=== PATIENT | female | born 1960 | race Caucasian/White ===

== ENCOUNTER 2021-06-27 10:00 | Inpatient (IN) | payer OTHER, SELFPAY ==
[2021-06-27] VITALS (10 sets, daily range): BP systolic 103–117; BP diastolic 63–74; PULSE 67–85; RESP 16–24; TEMP 36.6–37; O2SAT 84–97
--- NOTE | 2021-06-27 10:21 | W.ED.SOB ---
HPI - SOB/Dyspnea General: Chief Complaint: Shortness of Breath/Dyspnea Stated Complaint: Covid+, Low O2 Time Seen by Provider: 06/27/21 10:20 History of Present Illness: HPI Narrative: Ms. Don is a 61-year-old lady without significant past medical history presents to the emergency department due to worsening shortness of breath. Symptom onset was 6 days ago and she has had fairly typical Covid symptoms including fevers, chills, cough, body aches, and diarrhea. She tested positive 5 days ago however did not qualify for antibody infusion. At that time she was also given a course of steroids, Z-Tyrese, and inhalers by a clinic. Despite these treatments her symptoms are worsening. They're moderate in intensity and worse with exertion. No other specific changes to health, exacerbating, or relieving factors. No smoking history. No history of lung disease. Review of Systems General: Reports: 10 or more systems reviewed and unremarkable except in HPI and below PFSH ED PFSH: Medical History (Updated 06/27/21 @ 14:24 by Jose Alberto Perez MD) No significant past medical history Surgical History (Updated 06/27/21 @ 14:23 by Jose Alberto Perez MD) History of hysteroscopy Social History (Updated 06/27/21 @ 14:23 by Jose Alberto Perez MD) Smoking and tobacco status: former smoker Alcohol intake: never Substance/Drug Use: never Lives independently: Yes Household members: spouse Housing: House Physical Exam Narrative: EXAM NARRATIVE: GENERAL/CONSTITUTIONAL -ill-appearing. Increased respiratory effort Eyes - PERRL, no conjunctival injection ENMT - Atraumatic external nose and ears. Moist mucous membranes NECK - supple. trachea midline CARDIOVASCULAR - regular rate and rhythm. RESPIRATORY -diminished and coarse to auscultation bilaterally. Hypoxemia on room air. Tachypnea and increased respiratory effort. ABDOMEN/GI - Nontender/Nondistended. MSK - Extremities without obvious deformity or tenderness to palpation SKIN - Warm, Dry NEURO - alert and appropriately oriented. Moves all extremities equally. Course ED course: - Patient was seen and evaluated by me at bedside - Patient placed on cardiac monitors, IV access obtained - Initial evaluation notable for ill appearance, increased respiratory effort with hypoxemia on room air -Symptom treatment ordered - Labs notable for no significant hematologic abnormalities. Metabolic panel with mild respiratory alkalosis with decreased partial pressure of oxygen. No significant electrolyte abnormalities. CRP elevated with normal procalcitonin. - Imaging notable for bilateral infiltrates - Based on patient history, evaluation, labs, and imaging as interpreted the most likely cause of the patient's condition is COVID-19 with hypoxemia and respiratory distress requiring supplemental oxygen - The results of ED evaluation were discussed with the patient including plan for admission due to requirement for level of care not available if discharged to prevent significant worsening/deterioration. - Hospitalist service contacted and agreed admit the patient. D-dimer ordered at hospitalist request. - Patient was admitted without further deterioration or significant events. Vital Signs: Vital signs: Vital Signs Temperature 97.4 F L 07/02/21 20:00 Pulse Rate 80 07/02/21 20:20 Respiratory Rate 18 07/02/21 20:20 Blood Pressure 96/62 07/02/21 20:00 Pulse Oximetry 93 07/02/21 20:11 MDM - SOB/Dyspnea Medical Records: Attestation: I reviewed the patient's medical records. Lab Data: Attestation: I reviewed the patient's lab results. Labs: Lab Results 06/27/21 06/27/21 06/27/21 10:50 10:50 10:50 WBC 7.1 10^3/uL 10^3/ uL (4.0-10.0) RBC 4.74 10^6/uL 10^6 /uL (4.1-5.3) Hgb 14.3 g/dL g/dL (11.5-15.3) Hct 42.5 % % (37.0-47.0) MCV 89.7 fl fl (81-99) MCH 30.2 pg pg (28.0-34.0) MCHC 33.6 g/dL g/dL (30.0-36.0) RDW 12.2 % % (12.1-15.1) Plt Count 230 10^3/cmm 10^3 /cmm (130-400) MPV 9.8 fL fL (7.4-10.4) Neut % (Auto) 73.2 % % Lymph % (Auto) 14.6 % % Henderson % (Auto) 10.5 % % Eos % (Auto) 0.0 % % Baso % (Auto) 0.1 % % Neut # (Auto) 5.18 10^3/uL 10^3 /uL (1.8-7.7) Lymph # (Auto) 1.0 10^3/uL 10^3/ uL (0.8-4.8) Henderson # (Auto) 0.7 10^3/uL 10^3/ uL (0.2-0.9) Eos # (Auto) 0.0 10^3/uL 10^3/ uL (0.0-0.8) Baso # (Auto) 0.0 10^3/uL 10^3/ uL (0.0-0.1) Nucleated RBC % (a uto) 0 % % Nucleated RBCs # 0.0 /100WBC /100W BC D-Dimer Specimen Type Sample Site ABG pH ABG pCO2 ABG pO2 ABG HCO3 ABG Base Excess Weston Test Hematocrit Hgb O2 Saturation Carboxyhemoglobin Methemoglobin Total Hemoglobin O2 Delivery Device O2 Liters/Min FiO2 Supervisor Maintenance And Custodians ID Sodium 139 mmol/L mmol/L (136-145) Potassium 4.3 mmol/L mmol/L (3.5-5.1) Chloride 99 mmol/L mmol/L (98-107) Carbon Dioxide 28 mmol/L mmol/L (22-29) Anion Gap 16.3 (5-19) BUN 16 mg/dL mg/dL (8-23) Creatinine 0.6 mg/dL mg/dL (0.5-0.9) GFR Calculation 101.0 mL/min mL/m in (90-130) Glucose 103 mg/dL mg/dL (65-115) Calculated Osmolal ity 289 mOsm/kg mOsm/ kg (285-295) Lactic Acid 1.6 mmol/L mmol/L (0.5-2.2) Calcium 8.9 mg/dL mg/dL (8.5-10.5) Total Bilirubin 0.2 mg/dL mg/dL (0.15-1.2) AST 64 U/L H U/L (0-32) ALT 56 U/L H U/L (0-33) Alkaline Phosphata se 58 IU/L IU/L (35-105) Troponin T Baselin e Troponin T 120 Min marcell Delta Troponin T C-Reactive Protein 22.9 mg/L H mg/L (0.0-4.9) Total Protein 6.5 g/dL L g/dL (6.6-8.7) Albumin 3.7 g/dL g/dL (3.5-5.2) Globulin 2.8 g/dL g/dL (1.3-4.6) Procalcitonin 0.07 ng/mL ng/mL (0-0.5) 06/27/21 06/27/21 06/27/21 10:50 10:50 10:52 WBC RBC Hgb Hct MCV MCH MCHC RDW Plt Count MPV Neut % (Auto) Lymph % (Auto) Henderson % (Auto) Eos % (Auto) Baso % (Auto) Neut # (Auto) Lymph # (Auto) Henderson # (Auto) Eos # (Auto) Baso # (Auto) Nucleated RBC % (a uto) Nucleated RBCs # D-Dimer 1.06 ug/mIFEU H u g/mIFEU (0-0.59) Specimen Type Arterial Sample Site Brachial, right ABG pH 7.46 H (7.35-7.45) ABG pCO2 39.5 mmHg mmHg (35-45) ABG pO2 69.1 mmHg L mmHg (80.0-100.0) ABG HCO3 28.1 mmol/L H mmo l/L (22-26) ABG Base Excess 4.0 mmol/L H mmol /L (-2.0-2.0) Weston Test N/a Hematocrit 39.9 % % (37-47) Hgb O2 Saturation 93.6 % L % (95-100) Carboxyhemoglobin 0.6 %THgb %THgb (0.4-20.1) Methemoglobin 0.9 % % (0.4-1.5) Total Hemoglobin 13.0 g/dL g/dL (12-16) O2 Delivery Device Nc O2 Liters/Min 4.0 % % FiO2 36.0 % % Supervisor Maintenance And Custodians ID Amh Sodium Potassium Chloride Carbon Dioxide Anion Gap BUN Creatinine GFR Calculation Glucose Calculated Osmolal ity Lactic Acid Calcium Total Bilirubin AST ALT Alkaline Phosphata se Troponin T Baselin e 12 ng/L H ng/L (0-10) Troponin T 120 Min marcell Delta Troponin T C-Reactive Protein Total Protein Albumin Globulin Procalcitonin 06/27/21 12:43 WBC RBC Hgb Hct MCV MCH MCHC RDW Plt Count MPV Neut % (Auto) Lymph % (Auto) Henderson % (Auto) Eos % (Auto) Baso % (Auto) Neut # (Auto) Lymph # (Auto) Henderson # (Auto) Eos # (Auto) Baso # (Auto) Nucleated RBC % (a uto) Nucleated RBCs # D-Dimer Specimen Type Sample Site ABG pH ABG pCO2 ABG pO2 ABG HCO3 ABG Base Excess Weston Test Hematocrit Hgb O2 Saturation Carboxyhemoglobin Methemoglobin Total Hemoglobin O2 Delivery Device O2 Liters/Min FiO2 Supervisor Maintenance And Custodians ID Sodium Potassium Chloride Carbon Dioxide Anion Gap BUN Creatinine GFR Calculation Glucose Calculated Osmolal ity Lactic Acid Calcium Total Bilirubin AST ALT Alkaline Phosphata se Troponin T Baselin e Troponin T 120 Min marcell 11.18 ng/L H ng/L (0-10) Delta Troponin T -0.82 ABS# L ABS# (0-10) C-Reactive Protein Total Protein Albumin Globulin Procalcitonin EKG Data^: EKG 1: Attestation: I personally reviewed and interpreted this EKG as follows: EKG Interpretation Date: 06/27/21 EKG interpretation time: 10:48 Interpretation: Twelve-lead EKG shows a regular rhythm at a rate of 82. MD interval 135, QRS duration 83, QTc 376. Normal axis. Interpretation: Sinus rhythm. EKG 2: Attestation: I personally reviewed and interpreted this EKG as follows: EKG Interpretation Date: 06/27/21 EKG interpretation time: 12:59 Interpretation: Twelve-lead EKG shows a regular rhythm at a rate of 71. MD interval 131, QRS duration 85, QTc 376. Normal axis. Interpretation: Sinus rhythm. Discharge Plan Discharge Patient Disposition: Admitted As Inpatient Admit Provider: Jose Alberto Perez Coding Level of Care Code ED [employer] for [facility]
--- NOTE | 2021-06-27 10:31 | XRR_ITS ---
PROCEDURE INFORMATION: Exam: XR Chest Exam date and time: 06/27/2021 10:31 AM Age: 61 years old Clinical indication: Shortness of breath; Additional info: SOB TECHNIQUE: Imaging protocol: XR of the chest. Views: 1 view. COMPARISON: No relevant prior studies available. FINDINGS: Lungs: Bilateral consolidation and ground-glass opacities predominantly in the lower lungs. Pleural spaces: Unremarkable. No pleural effusion. No pneumothorax. Heart/Mediastinum: Unremarkable. No cardiomegaly. Bones/joints: No acute findings. XR/XR chest 1V portable [id number] IMPRESSION: Bilateral pneumonia. Radiation Dose CTDIVOL = (mGy): DLP = (mGy-cm)
--- NOTE | 2021-06-27 10:32 | ECG_ITS ---
[facility] Test Date: 2021-06-27 Pat Name: Grace Don Department: Room: Gender: Female Digital Project Manager: : 1960 Requested By: Anthony Becker Order Number: [id number] Sukhjinder MD: Sly Vigil M.D. Measurements Intervals [place] Rate: 82 P: 64 [place]: 135 QRS: 42 QRSD: 83 T: 64 QT: 337 QTc: 395 Interpretive Statements SINUS RHYTHM LOW QRS VOLTAGE IN PRECORDIAL LEADS [QRS DEFLECTION < 1.0 mV IN CHEST LEADS] MODERATE ST DEPRESSION [0.05+ mV ST DEPRESSION] No previous ECG available for comparison Electronically Signed On 06-27-2021 22:05:21 WIDE AREA NETWORK ENGINEER by Sly Vigil M.D. [id number] f
[2021-06-27] MEDS: sodium chloride 0.9% 500 ML 999 ML IV (10:53)
[2021-06-27 11:04] LABS: ABG PCO2 39.5 mmHg (35-45); ABG PH Result 7.46 (7.35-7.45); Arterial Blood Gas Hematocrit 39.9 % (37-47); Blood Gas Operator Identificat AMH; Blood Gas Sample Site Brachial, right; Blood Gas Sample Type Arterial; Carboxyhemoglobin 0.6 %THgb (0.4-20.1); HCO3 ABG 28.1 mmol/L (22-26); HGB O2 Sat 93.6 % (95-100); Methemoglobin 0.9 % (0.4-1.5); Oxygen Device NC; PO2 ABG 69.1 mmHg (80.0-100.0)
[2021-06-27 11:15] LABS: Basophils % 0.1 %; Hematocrit 42.5 % (37.0-47.0); Hemoglobin 14.3 g/dL (11.5-15.3); Lymphocytes % 14.6 %; Mean Corpuscular HGB Conc 33.6 g/dL (30.0-36.0); Mean Corpuscular Hemoglobin 30.2 pg (28.0-34.0); Mean Corpuscular Volume 89.7 fl (81-99); Mean Platelet Volume 9.8 fL (7.4-10.4); Monocytes # 0.7 10^3/uL (0.2-0.9); Monocytes % 10.5 %; Neutrophils # 5.18 10^3/uL (1.8-7.7); Neutrophils % 73.2 %; Nucleated Red Blood Cells % 0 %; Platelet Count 230 10^3/cmm (130-400); Red Blood Count 4.74 10^6/uL (4.1-5.3); Red Cell Distribution Width 12.2 % (12.1-15.1); White Blood Count 7.1 10^3/uL (4.0-10.0)
[2021-06-27 11:29] LABS: Slide Review Slide Review Perform
[2021-06-27 11:58] LABS: Troponin(5th) Baseline 12 ng/L (0-10)
[2021-06-27 12:01] LABS: Alanine Aminotransferase 56 U/L (0-33); Albumin Level 3.7 g/dL (3.5-5.2); Alkaline Phosphatase 58 IU/L (35-105); Anion Gap 16.3 (5-19); Aspartate Amino Transferase 64 U/L (0-32); Blood Urea Nitrogen 16 mg/dL (8-23); C Reactive Protein 22.9 mg/L (0.0-4.9); Calcium 8.9 mg/dL (8.5-10.5); Carbon Dioxide 28 mmol/L (22-29); Chloride 99 mmol/L (98-107); Globulin 2.8 g/dL (1.3-4.6); Glucose 103 mg/dL (65-115); Lactic Sepsis W/Reflex 1.6 mmol/L (0.5-2.2); Osmolality Calculated 289 mOsm/kg (285-295); Potassium 4.3 mmol/L (3.5-5.1); Sodium 139 mmol/L (136-145); Total Bilirubin 0.2 mg/dL (0.15-1.2); Total Protein 6.5 g/dL (6.6-8.7)
[2021-06-27 12:07] LABS: Procalcitonin 0.07 ng/mL (0-0.5)
--- NOTE | 2021-06-27 12:32 | ECG_ITS ---
[facility] Test Date: 2021-06-27 Pat Name: Grace Don Department: Room: 255 Gender: Female Hydrodynamics Professor: : 1960 Requested By: Anthony Becker Order Number: [id number] Sukhjinder MD: Sly Vigil M.D. Measurements Intervals [place] Rate: 71 P: 59 [place]: 131 QRS: 38 QRSD: 85 T: 60 QT: 354 QTc: 385 Interpretive Statements SINUS RHYTHM LOW QRS VOLTAGE IN PRECORDIAL LEADS [QRS DEFLECTION < 1.0 mV IN CHEST LEADS] Compared to ECG 06/27/2021 10:41:59 ST (T wave) deviation no longer present Electronically Signed On 06-27-2021 22:17:51 AIR CREW MEMBER by Sly Vigil M.D. [id number]
[2021-06-27 13:23] LABS: Troponin 5 2HR 11.18 ng/L (0-10)
--- NOTE | 2021-06-27 13:41 | PM.HP ---
Providers/Chief Complaint Admitting Physician: Jose Alberto Perez MD Chief Complaint: Covid+, Low O2 History of Present Illness Grace Don is a 61 year old female with no significant past medical history other than a recent hysteroscopy and polypectomy presents to the ER today after being tested positive for Covid 5 days ago. Patient states she started having symptoms of myalgia, cough, fever for last 6 days. For last 2 days she has been having increased cough on taking deep inspirations. Patient is not vaccinated for COVID-19. She states her is having similar symptoms but he has been vaccinated with last dose in January and is at home with mild cough. Review of Systems General: Reports: 10 or more systems reviewed and unremarkable except in HPI and below Const: Denies: fever(s), chills, body aches, change in appetite, change in weight, malaise, night sweats, diaphoresis, change in sleep pattern, daytime sleepiness or snoring Eyes: Denies: change in vision, blurry vision, photophobia, eye discomfort or eye discharge ENMT: Denies: throat pain, enlarged tonsils, hoarseness, mouth pain, oral sores, dry mouth, tinnitus, nasal congestion or post nasal drip Card: Denies: chest pain, palpitations, irregular heart rhythm, edema, swelling of feet/ankles, lightheadedness, syncope, pre-syncope, dyspnea on exertion, orthopnea, leg pain with exertion or acrocyanosis Resp: Denies: dyspnea, productive cough, non-productive cough, wheezing, stridor, pain on inspiration, change in phlegm color, hemoptysis or chest congestion GI: Denies: abdominal pain, nausea, vomiting, hematemesis, coffee ground emesis, dysphagia, heartburn, diarrhea, constipation, bloating, GI cramping, change in bowel habits, pain on defecation, hematochezia or melena : Denies: flank pain, dysuria, urinary frequency, urinary urgency, urinary hesitancy, nocturia or hematuria Musc: Denies: neck pain, back pain, extremity pain, joint pain, joint swelling, joint redness, joint stiffness or limited range of motion Neuro: Denies: headache(s), numbness in extremities, weakness in extremities, sensory changes, lack of coordination, difficulty walking, frequent falls, dizziness, vertigo, confusion, Slurred speech present, difficulty communicating thoughts or seizure-like activity Psych: Denies: anxiety, depression, mood swings, panic attacks, hopelessness or irritability Endo: Denies: polyuria, polydipsia, tired all the time, cold intolerance, excessive sweating, flushing or heat intolerance Jesus/Lymph: Denies: easy bruising or easy bleeding All/Imm: Denies: tongue swelling, facial swelling or acute wheezing Medications/Allergies Home Medications Medication Instructions Recorded Confirmed Last Taken Type albuterol sulfate 2 puff INHALATION Q6H PRN 06/27/21 06/27/21 Unknown History azithromycin See Rx Instructions .ROUTE .COMPLEX 06/27/21 06/27/21 06/26/21 History methylprednisolone See Rx Instructions .ROUTE .COMPLEX 06/27/21 06/27/21 06/26/21 History Allergies Allergy/AdvReac Type Severity Reaction Status Date / Time No Known Allergies Allergy Verified 06/27/21 10:12 PFSH Acute PFSH: Medical History (Updated 06/27/21 @ 14:24 by Jose Alberto Perez MD) No significant past medical history Surgical History (Updated 06/27/21 @ 14:23 by Jose Alberto Perez MD) History of hysteroscopy Social History (Updated 06/27/21 @ 14:23 by Jose Alberto Perez MD) Smoking and tobacco status: former smoker Alcohol intake: never Substance/Drug Use: never Lives independently: Yes Household members: spouse Housing: House Vitals/I&O/Wt Last Vital Signs Temp 98 F 06/27/21 10:12 Pulse 79 06/27/21 10:57 Resp 20 H 06/27/21 10:57 BP 117/74 06/27/21 10:57 Pulse Ox 97 06/27/21 10:57 06/26/21 06/27/21 06/27/21 22:59 06:59 14:59 Intake Total 500 / 500 Balance 500 / 500 Weight last 48 hrs Weight 54.431 kg Physical Exam Narrative: EXAM NARRATIVE: General: No acute distress, AO x3, mildly dehydrated HEENT: PERRLA, pupils bilaterally equal and reactive Chest: Normal vesicular breath sounds, bilateral rhonchi present, equal good air entry bilaterally CVS: S1-S2 regular, no murmurs, no tachycardia, no gallops, no rubs Abdomen: Soft, nontender, no organomegaly, bowel sounds present Neuro: No focal deficits, no facial deformity, AO x3, power 5/5 in all limbs Data : 06/27/21 10:50 06/27/21 10:50 A&P Assessment and plan (1) Pneumonia due to COVID-19 virus: Status: Acute (2) Hypoxia: Status: Acute Additional A&P Information Hypoxia secondary to COVID-19 pneumonia: Mild to moderate disease. Oxygen supplementation keeping saturation over 88%. Dexamethasone 6 mg daily. Remdesivir to finish a 5-day course. Vitamin C, zinc. DuoNeb every 6 hour, budesonide twice daily Pulmonary toilet with incentive spirometry flutter valve. We will monitor inflammatory markers including ferritin, ESR, CRP, D-dimer, fibrinogen. If getting elevated will dose Actemra. Patient was made aware of the same and he has given verbal consent. Check D-dimer. Depending on D-dimer will see CTA versus CT chest. For now start patient on Lovenox at prophylactic dose. Will monitor for anemia or blood loss. Check sputum culture, procalcitonin, urine Legionella, bacterial antigen, blood culture. Low suspicion of bacterial infection for now. For now Levaquin 500 mg daily for 5 days. Given hypoxia will try to keep patient as negative as possible. We will continue to monitor fluid status. Strict input output charting, daily weights. Full code. Lovenox for DVT prophylaxis. Pepcid for PUD prophylaxis. Regular diet. Patient wants her daughter Ms. Damon to be her DPOA for medical decisions when she is not able to make it by herself. Attestations Medical Necessity Statement*: Admission for more than 2 midnights for management of hypoxia secondary to COVID-19 pneumonia Time Spent in Patient Care: Greater than 35 minutes (>than 50% of time spent in counselling and/or direct pt care on unit). Coding Level of Care Code Acute Teleprinter Installer for Chris Moreland Diagnoses Pneumonia due to COVID-19 virus U07.1; J12.82 Hypoxia R09.02
[2021-06-27 13:47] LABS: Troponin 5 2HR Delta -0.82 ABS# (0-10)
[2021-06-27 13:56] LABS: D Dimer 1.06 ug/mIFEU (0-0.59)
--- NOTE | 2021-06-27 14:10 | CTR_ITS ---
PROCEDURE INFORMATION: Exam: CTA Chest With Contrast Exam date and time: 06/27/2021 2:10 PM Age: 61 years old Clinical indication: Shortness of breath; Additional info: Elevated d dimer TECHNIQUE: Imaging protocol: Computed tomographic angiography of the chest with contrast. 3D rendering (Not supervised by radiologist): MIP and/or 3D reconstructed images were created by the technologist. Radiation optimization: All CT scans at this facility use at least one of these dose optimization techniques: automated exposure control; mA and/or kV adjustment per patient size (includes targeted exams where dose is matched to clinical indication); or iterative reconstruction. Contrast material: OMNI 350; Contrast volume: 69 ml; Contrast route: INTRAVENOUS (IV); COMPARISON: CR XR chest 1V portable [id number] 06/27/2021 11:01 AM RADIATION DOSE METRICS: Total DLP (mGy-cm): 329.94 FINDINGS: Pulmonary arteries: No pulmonary emboli. Aorta: No aortic aneurysm. No aortic dissection. Lungs: Bilateral multifocal ground-glass opacities and partial consolidation predominantly in the periphery of both lungs. No cavitary lesion or mass. Pleural spaces: Unremarkable. No pneumothorax. No pleural effusion. Heart: No cardiomegaly. Trace pericardial effusion. Lymph nodes: No significant adenopathy. Bones/joints: No acute findings. Soft tissues: Unremarkable. CT/CT angio chest PE protcl [id number] IMPRESSION: Bilateral pneumonia consistent with COVID-19 pneumonia. Radiation Dose CTDIVOL = (mGy): DLP = 329.94 (mGy-cm)
--- NOTE | 2021-06-27 14:43 | PC.NURSE ---
Report called to floor, given to YODIT Callaway
[2021-06-27] MEDS: iohexol 350 mg/mL 100 mL Btl IV (14:55)
[2021-06-27] MEDS: remdesivir 200 MG in sodium chloride 0.9% (100 ml) 60 ML 100 MG IV (15:16)
[2021-06-27 15:35] LABS: Lactate Dehydrogenase 545 U/L (135-214); Thyroid Stimulating Hormone 1.15 uIU/mL (0.27-4.20)
[2021-06-27] MEDS: benzonatate 100 mg Capsule PO ×2 (15:37→21:30)
[2021-06-27] MEDS: levoFLOXacin 500 mg Tablet PO (15:37)
[2021-06-27] MEDS: enoxaparin 40 mg/0.4 mL Syringe SUBCUT (15:37)
[2021-06-27] MEDS: dexamethasone 4 mg/mL INJ 6 MG IVP (15:38)
[2021-06-27] MEDS: ipratropium-albuterol 3 mL Neb INHALATION ×2 (16:51→20:20)
[2021-06-27 17:17] LABS: Influenza A by IFA Negative (Negative); Influenza B by IFA Negative (Negative)
[2021-06-27] MEDS: ascorbic acid 500 mg Tablet PO (18:09)
[2021-06-27] MEDS: famotidine 20 mg Tablet PO (18:09)
--- NOTE | 2021-06-27 18:40 | PC.NURSE ---
Patient stated had a procedure to remove a polyp from the uterus and has a small amount of bleeding at times. Patient did tell Dr. Perez
--- NOTE | 2021-06-27 19:07 | PC.NURSE ---
Report to Puneet JAY at this time.
[2021-06-27 20:05] LABS: Troponin 5 6HR 11.68 ng/L (0-10)
[2021-06-28] VITALS (19 sets, daily range): BP systolic 91–112; BP diastolic 57–70; PULSE 65–83; RESP 17–24; TEMP 36.5–37.1; O2SAT 89–95
[2021-06-28 01:10] LABS: Iron 27 ug/dL (37-145); Percent Saturation 14.7 % (20-50); Total Iron Binding Capacity 183 mcg/dl; Unsaturated Iron Binding 156 ug/dL (112-347)
[2021-06-28] MEDS: ipratropium-albuterol 3 mL Neb INHALATION ×5 (03:51→20:21)
[2021-06-28] MEDS: remdesivir 100 MG in sodium chloride 0.9% (100 ml) 100 ML IV (05:54)
[2021-06-28] MEDS: levoFLOXacin 500 mg Tablet PO (05:54)
[2021-06-28] MEDS: ondansetron 2 mg/ML SDV 2 mL 4 MG IVP (07:23)
[2021-06-28 07:28] LABS: D Dimer 0.69 ug/mIFEU (0-0.59)
[2021-06-28 07:48] LABS: Chol HDL Ratio 3.24 mg/dL (0.0-4.40); Cholesterol 136 mg/dL (0-200); HDL Cholesterol 42 mg/dL (60-100); LDL Cholesterol Calculated 81 mg/dL (50-129); Triglycerides 66 mg/dL (0-150); VLDL Cholestrol Calculation 13 mg/dL (0-30)
[2021-06-28 07:50] LABS: C Reactive Protein 16.4 mg/L (0.0-4.9); NT Pro B Type Natriuretic Pept 199 pg/mL (0-125)
[2021-06-28 08:13] LABS: Estmated Average Glucose 114; Hemoglobin A1C 5.6 % (4.0-6.0)
[2021-06-28] MEDS: zinc gluconate 50 mg Tablet PO (08:50)
[2021-06-28] MEDS: benzonatate 100 mg Capsule PO ×3 (08:50→21:18)
[2021-06-28] MEDS: ascorbic acid 500 mg Tablet PO ×2 (08:50→17:44)
[2021-06-28] MEDS: famotidine 20 mg Tablet PO ×2 (08:50→17:44)
[2021-06-28] MEDS: budesonide 0.5 mg/2 mL Neb INHALATION ×2 (11:43→20:21)
--- NOTE | 2021-06-28 13:42 | P.PN_ITS ---
Subjective Subjective: Interval history: No acute events overnight. Has remained hemodynamically stable and afebrile. Currently on 4 L oxygen supplementation saturating 92%. In prone position while laying in bed. Working well with I-S and Acapella. Better mood today. Overnight was mildly anxious as per the nurse. Vitals/I&O/Wt Last Vital Signs Temp 97.8 F 06/28/21 12:00 Pulse 83 06/28/21 12:00 Resp 18 06/28/21 12:00 BP 98/63 06/28/21 12:00 Pulse Ox 89 L 06/28/21 12:00 06/27/21 06/28/21 06/28/21 22:59 06:59 14:59 Intake Total 520 / 1020 200 / 1220 160 / 160 Output Total 200 / 200 Balance 320 / 820 200 / 1020 160 / 160 Weight last 48 hrs Weight 54.431 kg Weight 54.431 kg Physical Exam Narrative: EXAM NARRATIVE: General: No acute distress, AO x3, mildly dehydrated HEENT: PERRLA, pupils bilaterally equal and reactive Chest: Normal vesicular breath sounds, bilateral rhonchi present, equal good air entry bilaterally CVS: S1-S2 regular, no murmurs, no tachycardia, no gallops, no rubs Abdomen: Soft, nontender, no organomegaly, bowel sounds present Neuro: No focal deficits, no facial deformity, AO x3, power 5/5 in all limbs Data : 06/27/21 10:50 06/27/21 10:50 Micro: Microbiology 06/27/21 15:20 MRSA Culture - Final Nose 06/27/21 14:36 Blood Culture - Preliminary Blood SPECIMEN COLLECTED 06/27/21 14:36 Blood Culture - Preliminary Blood SPECIMEN COLLECTED A&P Assessment and plan (1) Pneumonia due to COVID-19 virus: Status: Acute (2) Hypoxia: Status: Acute Additional A&P Information Hypoxia secondary to COVID-19 pneumonia: Mild to moderate disease. Oxygen supplementation keeping saturation over 88%. Dexamethasone 6 mg daily. Remdesivir to finish a 5-day course. Vitamin C, zinc. DuoNeb every 6 hour, budesonide twice daily Pulmonary toilet with incentive spirometry flutter valve. We will monitor inflammatory markers including ferritin, ESR, CRP, D-dimer, fibrinogen. If getting elevated will dose Actemra. Patient was made aware of the same and he has given verbal consent. D-dimer positive, CTA negative for pulmonary embolism. For now continue with prophylactic Lovenox dose. We will continue to monitor D-dimer and oxygen supplementation. If both are going higher we will switch to full dose anticoagulation. Check sputum culture, procalcitonin, urine Legionella, bacterial antigen, blood culture. MRSA positive. Low suspicion of bacterial infection for now. For now Levaquin 500 mg daily for 5 days. Given hypoxia will try to keep patient as negative as possible. We will continue to monitor fluid status. Strict input output charting, daily weights. Full code. Lovenox for DVT prophylaxis. Pepcid for PUD prophylaxis. Regular diet. Patient wants her daughter Ms. Damon to be her DPOA for medical decisions when she is not able to make it by herself. Attestations Medical Necessity Statement*: Requires further hospitalization for management of hypoxia secondary COVID-19 pneumonia Time Spent in Patient Care: Greater than 35 minutes (>than 50% of time spent in counselling and/or direct pt care on unit) . Coding Level of Care Code Acute Mining And Quarrying Machinery Repairer for Chris Moreland Diagnoses Pneumonia due to COVID-19 virus U07.1; J12.82 Hypoxia R09.02
--- NOTE | 2021-06-28 13:45 | XRR_ITS ---
PROCEDURE INFORMATION: Exam: XR Chest Exam date and time: 06/28/2021 1:45 PM Age: 61 years old Clinical indication: Shortness of breath; Additional info: SOB TECHNIQUE: Imaging protocol: XR of the chest. Views: 1 view. COMPARISON: CR XR chest 1V portable [id number] 06/27/2021 11:01 AM FINDINGS: Lungs: There are extensive bilateral pulmonary infiltrates predominantly in the lung bases. They have not significantly changed since previous study. Pleural spaces: Unremarkable. No pleural effusion. No pneumothorax. Heart/Mediastinum: Unremarkable. No cardiomegaly. Bones/joints: Unremarkable. XR/XR chest 1V portable [id number] IMPRESSION: Bilateral pulmonary infiltrates unchanged. Radiation Dose CTDIVOL = (mGy): DLP = (mGy-cm)
[2021-06-28] MEDS: enoxaparin 40 mg/0.4 mL Syringe SUBCUT (14:34)
[2021-06-28] MEDS: ALPRAZolam 0.5 mg Tablet PO (14:34)
[2021-06-28] MEDS: dexamethasone 4 mg/mL INJ 6 MG IVP (14:34)
[2021-06-28 15:20] LABS: Specific Gravity, Urine 1.025 (1.005-1.030); Urine Appearance Clear (CLEAR); Urine Color Yellow (Yellow); pH Urine 6 (5-7)
[2021-06-28 15:21] LABS: Add Urine Microscopic? YES; Bacteria Urine 1+ /hpf; Bilirubin Urine Neg (Negative); Blood Urine 3+ (Negative); Glucose Urine UA Norm (Normal); Ketones Urine Negative (Negative); Leukocyte Esterase Urine 1+ (Negative); Mucus Urine 1+ /hpf; Nitrate Urine Negative (Negative); Protein Urine Neg (Negative); RBC Urine 0-4 /hpf (0-2); Squamous Epithelial Cell Urine RARE /hpf (0-5); Urobilinogen Urine Norm (Negative)
[2021-06-28 15:22] LABS: Add Urine Culture? Yes
--- NOTE | 2021-06-28 17:49 | PC.NURSE ---
Spoke with patient who gave consent to speak to Eloy Gibbs if needed, phone number [phone].
[2021-06-29] VITALS (18 sets, daily range): BP systolic 84–111; BP diastolic 50–70; PULSE 64–87; RESP 17–24; TEMP 36.4–37.3; O2SAT 89–95
[2021-06-29] MEDS: ipratropium-albuterol 3 mL Neb INHALATION ×6 (03:42→23:15)
[2021-06-29] MEDS: ALPRAZolam 0.5 mg Tablet PO ×2 (04:29→20:35)
[2021-06-29 06:32] LABS: Basophils % 0.3 %; Hematocrit 39.9 % (37.0-47.0); Hemoglobin 13.1 g/dL (11.5-15.3); Lymphocytes # 0.8 10^3/uL (0.8-4.8); Lymphocytes % 13.2 %; Mean Corpuscular HGB Conc 32.8 g/dL (30.0-36.0); Mean Corpuscular Hemoglobin 29.6 pg (28.0-34.0); Mean Corpuscular Volume 90.3 fl (81-99); Mean Platelet Volume 9.9 fL (7.4-10.4); Monocytes # 0.6 10^3/uL (0.2-0.9); Monocytes % 10.2 %; Neutrophils # 4.51 10^3/uL (1.8-7.7); Nucleated Red Blood Cells % 0 %; Platelet Count 341 10^3/cmm (130-400); Red Blood Count 4.42 10^6/uL (4.1-5.3); Red Cell Distribution Width 12.1 % (12.1-15.1); White Blood Count 6.3 10^3/uL (4.0-10.0)
[2021-06-29] MEDS: remdesivir 100 MG in sodium chloride 0.9% (100 ml) 100 ML IV (06:37)
[2021-06-29 06:40] LABS: Alanine Aminotransferase 144 U/L (0-33); Albumin Level 3.3 g/dL (3.5-5.2); Alkaline Phosphatase 62 IU/L (35-105); Anion Gap 15.4 (5-19); Aspartate Amino Transferase 95 U/L (0-32); Blood Urea Nitrogen 24 mg/dL (8-23); Calcium 8.5 mg/dL (8.5-10.5); Carbon Dioxide 26 mmol/L (22-29); Chloride 104 mmol/L (98-107); Globulin 3.3 g/dL (1.3-4.6); Glucose 132 mg/dL (65-115); Osmolality Calculated 298 mOsm/kg (285-295); Potassium 4.4 mmol/L (3.5-5.1); Sodium 141 mmol/L (136-145); Total Bilirubin 0.3 mg/dL (0.15-1.2); Total Protein 6.6 g/dL (6.6-8.7)
[2021-06-29] MEDS: levoFLOXacin 500 mg Tablet PO (06:41)
[2021-06-29] MEDS: budesonide 0.5 mg/2 mL Neb INHALATION ×2 (07:49→19:53)
[2021-06-29 08:20] LABS: Slide Review Slide Review Perform
[2021-06-29] MEDS: ascorbic acid 500 mg Tablet PO ×2 (08:50→17:55)
[2021-06-29] MEDS: zinc gluconate 50 mg Tablet PO (08:50)
[2021-06-29] MEDS: benzonatate 100 mg Capsule PO ×3 (08:50→20:35)
[2021-06-29] MEDS: famotidine 20 mg Tablet PO ×2 (08:50→17:55)
--- NOTE | 2021-06-29 08:56 | PC.NURSE ---
informed nurse about low BP
[2021-06-29] MEDS: enoxaparin 40 mg/0.4 mL Syringe SUBCUT (14:51)
[2021-06-29] MEDS: dexamethasone 4 mg/mL INJ 6 MG IVP (14:51)
--- NOTE | 2021-06-29 21:34 | P.PN_ITS ---
Subjective Subjective: Interval history: She overall reports doing okay, but still having some nausea. No vomiting. Diffuse body aches. So far no further headache today. No chest pain or pressure. Coughing. Blood pressures usually run 100s-110. Today's blood pressures are lower than her usual. Vitals/I&O/Wt Last Vital Signs Temp 98.2 F 06/29/21 20:00 Pulse 74 06/29/21 20:00 Resp 18 06/29/21 20:00 BP 95/57 06/29/21 20:00 Pulse Ox 95 06/29/21 20:00 06/29/21 06/29/21 06/29/21 06:59 14:59 22:59 Intake Total 340 / 340 120 / 460 Output Total 600 / 600 1500 / 1500 550 / 2050 Balance -600 / 160 -1160 / -1160 -430 / -1590 Weight last 48 hrs Weight 53.342 kg Weight 54.431 kg Physical Exam Const: COMMON NORMALS: no acute distress and patient oriented x3 GENERAL APPEARANCE: ill appearing HENMT: COMMON NORMALS: oropharynx normal Neck/C-Spine: COMMON NORMALS: no JVD Resp: COMMON NORMALS: normal respiratory effort and clear to auscultation bilaterally AUSCULTATION: clear to auscultation bilaterally Cardio: COMMON NORMALS: no JVD, regular rhythm, S1 normal heart sound present, S2 normal heart sound present and No murmurs present (Cardio) RHYTHM: regular rhythm HEART SOUNDS: S1 normal heart sound present and S2 normal heart sound present GI: COMMON NORMALS: Normal to inspection, nondistended, normoactive bowel sounds present, Soft to palpation and non-tender PALPATION: Yes Soft to palpation Extremity: COMMON NORMALS: no joint enlargement and no pedal edema Neuro: COMMON NORMALS: patient oriented x3 and moves all extremities Skin: COMMON NORMALS: no rashes or lesions noted GENERAL SKIN EXAM: no rashes or lesions noted Data : 06/29/21 05:42 06/29/21 05:42 Micro: Microbiology 06/28/21 14:48 Urine Culture - Preliminary Urine,Clean Catch 06/28/21 14:48 Bacterial Antigens - Final Urine,Clean Catch A&P Assessment and plan (1) Pneumonia due to COVID-19 virus: Hypoxia has been gradually improving, down to 3 L nasal cannula oxygen requirement. Still malaise, body aches, nausea. Today blood pressure is low, 84/50. He reports blood pressure in 100-110. Not on any antihypertensives. Bedrest requested for now. Monitor blood pressures. Continue aggressive, although if hypotension worsens, perhaps may discontinue if no other explanation. Hypotension may be secondary to autonomic instability from COVID-19 itself. Decadron. Prophylactic Lovenox. Status: Acute (2) Hypoxia: Status: Acute Additional A&P Information Negative procalcitonin, urine bacterial antigen, blood culture. MRSA positive. Low suspicion of bacterial infection for now. For now Levaquin 500 mg daily for 5 days. Patient wants her daughter Ms. Damon to be her DPOA for medical decisions when she is not able to make it by herself. Attestations Medical Necessity Statement*: Continue admission for assessment management of severe COVID-19. Coding Level of Care Code Acute Level Vial Sealer for [facility] Diagnoses Pneumonia due to COVID-19 virus U07.1; J12.82 Hypoxia R09.02
[2021-06-30] VITALS (13 sets, daily range): BP systolic 94–99; BP diastolic 57–68; PULSE 60–87; RESP 16–20; TEMP 36.2–36.9; O2SAT 85–95
[2021-06-30] MEDS: ipratropium-albuterol 3 mL Neb INHALATION ×5 (03:15→20:42)
[2021-06-30] MEDS: guaiFENesin-dextromethorphan UDC 10 mL 5 ML PO (04:27)
[2021-06-30] MEDS: remdesivir 100 MG in sodium chloride 0.9% (100 ml) 100 ML IV (05:02)
[2021-06-30] MEDS: levoFLOXacin 500 mg Tablet PO (05:02)
--- NOTE | 2021-06-30 05:02 | PC.NURSE ---
i reported low temp 97.5 and low 02 85 to nurse
[2021-06-30 05:17] LABS: Hematocrit 44.3 % (37.0-47.0); Hemoglobin 14.2 g/dL (11.5-15.3); Mean Corpuscular HGB Conc 32.1 g/dL (30.0-36.0); Mean Corpuscular Hemoglobin 29.3 pg (28.0-34.0); Mean Corpuscular Volume 91.5 fl (81-99); Mean Platelet Volume 9.9 fL (7.4-10.4); Platelet Count 420 10^3/cmm (130-400); Red Blood Count 4.84 10^6/uL (4.1-5.3); Red Cell Distribution Width 12.2 % (12.1-15.1); White Blood Count 6.8 10^3/uL (4.0-10.0)
[2021-06-30 06:32] LABS: Alanine Aminotransferase 143 U/L (0-33); Albumin Level 3.2 g/dL (3.5-5.2); Alkaline Phosphatase 66 IU/L (35-105); Aspartate Amino Transferase 67 U/L (0-32); Blood Urea Nitrogen 20 mg/dL (8-23); Calcium 8.8 mg/dL (8.5-10.5); Carbon Dioxide 26 mmol/L (22-29); Chloride 101 mmol/L (98-107); Globulin 3.1 g/dL (1.3-4.6); Glucose 124 mg/dL (65-115); Osmolality Calculated 294 mOsm/kg (285-295); Sodium 140 mmol/L (136-145); Total Bilirubin 0.2 mg/dL (0.15-1.2); Total Protein 6.3 g/dL (6.6-8.7)
[2021-06-30 06:49] LABS: Anion Gap 17.4 (5-19); Potassium 4.4 mmol/L (3.5-5.1)
[2021-06-30 07:29] LABS: Slide Review Slide Review Perform
[2021-06-30 07:32] LABS: Absolute Neutrophil 5.1 10^3/cmm (1.4-6.5); Absolute Segmented Neutrophil 4.8 10/cmm (1.6-7.1); Band Neutrophils Absolute 0.3 10^3/cmm (0.0-1.2); Lymphocytes 17 %; Lymphocytes Absolute 1.2 10^3/cmm (1.2-3.4); Monocytes Absolute 0.1 10^3/cmm (0.1-0.6); Platelet Estimate Normal (Normal); Poikilocytosis 1+; Segmented Neutrophils 71 %; Total Cells Counted 100 (0-100)
[2021-06-30 07:33] LABS: Eosinophils 0 %
[2021-06-30] MEDS: ascorbic acid 500 mg Tablet PO ×2 (08:12→17:26)
[2021-06-30] MEDS: zinc gluconate 50 mg Tablet PO (08:12)
[2021-06-30] MEDS: famotidine 20 mg Tablet PO ×2 (08:12→17:26)
[2021-06-30] MEDS: benzonatate 100 mg Capsule PO ×3 (08:12→21:41)
[2021-06-30] MEDS: budesonide 0.5 mg/2 mL Neb INHALATION ×2 (08:39→20:43)
--- NOTE | 2021-06-30 13:45 | XRR_ITS ---
PROCEDURE INFORMATION: Exam: XR Chest Exam date and time: 06/30/2021 1:45 PM Age: 61 years old Clinical indication: Shortness of breath; Additional info: SOB TECHNIQUE: Imaging protocol: XR of the chest. Views: 1 view. COMPARISON: CR (CHEST, ) 06/28/2021 7:44 AM FINDINGS: Lungs: Persistent bilateral pulmonary infiltrates, slightly increased in the bilateral lateral upper lung zones. Pleural spaces: Unremarkable. No pleural effusion. No pneumothorax. Heart/Mediastinum: No cardiomegaly. Bones/joints: No acute fracture. XR/XR chest 1V portable [id number] IMPRESSION: Persistent bilateral pulmonary infiltrates, slightly increased in the bilateral lateral upper lung zones. Radiation Dose CTDIVOL = (mGy): DLP = (mGy-cm)
[2021-06-30 14:03] LABS: C Reactive Protein 4.8 mg/L (0.0-4.9)
--- NOTE | 2021-06-30 14:24 | PC.SOCIAL ---
Pt didnt trigger
[2021-06-30 14:42] LABS: D Dimer 0.53 ug/mIFEU (0-0.59)
[2021-06-30] MEDS: dexamethasone 4 mg/mL INJ 6 MG IVP (15:12)
[2021-06-30] MEDS: enoxaparin 40 mg/0.4 mL Syringe SUBCUT (15:12)
[2021-06-30] MEDS: ALPRAZolam 0.5 mg Tablet PO ×2 (15:23→23:31)
--- NOTE | 2021-06-30 20:45 | PC.NURSE ---
i reported low o2 89 to nurse
--- NOTE | 2021-06-30 20:47 | PM.PN ---
Subjective Subjective: Interval history: Very anxious about returning home, states has been feeling fatigued, yesterday got quite distressed when could not call for help to help her get off the commode, transferred by herself, but felt anxious about the whole experience. Encouraged her regarding overall condition. Oxygenation has been relatively steady, although still requiring 2.5 L, later for by nasal cannula. Blood pressure soft, but not as soft as before and approaching closer to her usual. States her is ill at home with Covid, also her mother as well as a number of other family members. I encouraged her that she needs to mobilize. Discussed we will get PT and OT on board so that she may become and feel more independent and confident about returning home. Vitals/I&O/Wt Last Vital Signs Temp 98.3 F 06/30/21 20:00 Pulse 80 06/30/21 20:00 Resp 18 06/30/21 20:00 BP 99/68 06/30/21 20:00 Pulse Ox 89 L 06/30/21 20:00 06/30/21 06/30/21 06/30/21 06:59 14:59 22:59 Intake Total 220 / 680 720 / 720 120 / 840 Output Total 860 / 2910 Balance -640 / -2230 720 / 720 120 / 840 Weight last 48 hrs Weight 53.342 kg Physical Exam Const: COMMON NORMALS: no acute distress and patient oriented x3 GENERAL APPEARANCE: anxious and ill appearing HENMT: COMMON NORMALS: oropharynx normal Neck/C-Spine: COMMON NORMALS: no JVD Resp: COMMON NORMALS: normal respiratory effort and clear to auscultation bilaterally AUSCULTATION: clear to auscultation bilaterally Cardio: COMMON NORMALS: no JVD, regular rhythm, S1 normal heart sound present, S2 normal heart sound present and No murmurs present (Cardio) RHYTHM: regular rhythm HEART SOUNDS: S1 normal heart sound present and S2 normal heart sound present GI: COMMON NORMALS: Normal to inspection, nondistended, normoactive bowel sounds present, Soft to palpation and non-tender PALPATION: Yes Soft to palpation Extremity: COMMON NORMALS: no joint enlargement and no pedal edema Neuro: COMMON NORMALS: patient oriented x3 and moves all extremities Skin: COMMON NORMALS: no rashes or lesions noted GENERAL SKIN EXAM: no rashes or lesions noted Data : 06/30/21 04:36 06/30/21 04:36 Micro: Microbiology 06/29/21 16:30 Gram Stain - Final Sputum - Expectorated Sputum Sputum Culture - Preliminary 06/28/21 14:48 Urine Culture - Final Urine,Clean Catch A&P Assessment and plan (1) Pneumonia due to COVID-19 virus: Persistent hypoxia, with some fluctuation in oxygenation, requiring 3.5 L today, somewhat worse in the evening up to 4 L. Generally anxious. Has made it on her own from the commode to the bed, but felt very anxious about doing so. We are getting PT and OT involved given she does have persistent fatigue, states at home has Covid as well as multiple other family members, so does not have much support she could count on. Continue course of remdesivir. Decadron. Prophylactic Lovenox. Blood pressure still slightly softer than usual, but better. Status: Acute (2) Hypoxia: Status: Acute Additional A&P Information Negative procalcitonin, urine bacterial antigen, blood culture. MRSA positive. Low suspicion of bacterial infection for now. For now Levaquin 500 mg daily for 5 days. Patient wants her daughter Ms. Damon to be her DPOA for medical decisions when she is not able to make it by herself. Attestations Medical Necessity Statement*: Continue admission for severe COVID-19 associated with hypoxia and limitations of daily functioning. Coding Level of Care Code Acute Automatic Bow Maker Machine Tender for [facility] Diagnoses Pneumonia due to COVID-19 virus U07.1; J12.82 Hypoxia R09.02
[2021-06-30] MEDS: ondansetron 2 mg/ML SDV 2 mL 4 MG IVP (23:40)
[2021-07-01] VITALS (18 sets, daily range): BP systolic 88–108; BP diastolic 55–76; PULSE 76–93; RESP 17–20; TEMP 36.4–36.7; O2SAT 90–99
[2021-07-01] MEDS: ipratropium-albuterol 3 mL Neb INHALATION ×6 (00:05→23:46)
[2021-07-01] MEDS: levoFLOXacin 500 mg Tablet PO (05:15)
[2021-07-01] MEDS: remdesivir 100 MG in sodium chloride 0.9% (100 ml) 100 ML IV (05:16)
[2021-07-01 06:13] LABS: Basophils % 0.4 %; Hemoglobin 13.4 g/dL (11.5-15.3); Lymphocytes # 1.4 10^3/uL (0.8-4.8); Lymphocytes % 15.2 %; Mean Corpuscular HGB Conc 32.7 g/dL (30.0-36.0); Mean Corpuscular Hemoglobin 29.5 pg (28.0-34.0); Mean Corpuscular Volume 90.3 fl (81-99); Mean Platelet Volume 10.1 fL (7.4-10.4); Monocytes # 0.8 10^3/uL (0.2-0.9); Monocytes % 9.4 %; Neutrophils # 5.96 10^3/uL (1.8-7.7); Neutrophils % 66.6 %; Nucleated Red Blood Cells % 0 %; Platelet Count 416 10^3/cmm (130-400); Red Blood Count 4.54 10^6/uL (4.1-5.3); Red Cell Distribution Width 12.1 % (12.1-15.1)
[2021-07-01 06:34] LABS: Alanine Aminotransferase 93 U/L (0-33); Albumin Level 3.1 g/dL (3.5-5.2); Alkaline Phosphatase 56 IU/L (35-105); Anion Gap 14.3 (5-19); Aspartate Amino Transferase 27 U/L (0-32); Blood Urea Nitrogen 19 mg/dL (8-23); Calcium 8.3 mg/dL (8.5-10.5); Carbon Dioxide 26 mmol/L (22-29); Chloride 101 mmol/L (98-107); Globulin 2.8 g/dL (1.3-4.6); Glucose 119 mg/dL (65-115); Osmolality Calculated 287 mOsm/kg (285-295); Potassium 4.3 mmol/L (3.5-5.1); Sodium 137 mmol/L (136-145); Total Bilirubin 0.2 mg/dL (0.15-1.2); Total Protein 5.9 g/dL (6.6-8.7)
[2021-07-01] MEDS: acetaminophen 325 mg Tablet 650 MG PO (06:47)
[2021-07-01 06:57] LABS: Slide Review Slide Review Perform
[2021-07-01] MEDS: budesonide 0.5 mg/2 mL Neb INHALATION ×2 (08:27→19:57)
[2021-07-01] MEDS: ascorbic acid 500 mg Tablet PO ×2 (09:30→16:54)
[2021-07-01] MEDS: zinc gluconate 50 mg Tablet PO (09:30)
[2021-07-01] MEDS: famotidine 20 mg Tablet PO ×2 (09:30→16:54)
[2021-07-01] MEDS: benzonatate 100 mg Capsule PO ×3 (09:30→20:31)
[2021-07-01] MEDS: lanolin oint 7 gm 1 APPLIC TOPICAL (11:34)
[2021-07-01] MEDS: dexamethasone 4 mg/mL INJ 6 MG IVP (14:53)
[2021-07-01] MEDS: enoxaparin 40 mg/0.4 mL Syringe SUBCUT (14:53)
--- NOTE | 2021-07-01 15:37 | PC.NURSE ---
Daughter Glory notified via telephone at this time for update. Expresses understanding and thanks for update.
[2021-07-01] MEDS: bisacodyl 5 mg Tablet 10 MG PO (16:54)
[2021-07-01] MEDS: ondansetron 2 mg/ML SDV 2 mL 4 MG IVP (16:59)
--- NOTE | 2021-07-01 21:08 | PM.PN ---
Subjective Subjective: Interval history: Oxygenation worsened today, requiring 5 L oxygen by nasal cannula. Also blood pressure has been soft, lower than usual. Still she has been trying to mobilize a bit more, got to the edge of the bed, has been using I-S and flutter valve. Denies chest pain or pressure. Vitals/I&O/Wt Last Vital Signs Temp 97.6 F 07/01/21 16:00 Pulse 86 07/01/21 20:14 Resp 20 H 07/01/21 20:02 BP 92/55 07/01/21 16:00 Pulse Ox 96 07/01/21 20:02 07/01/21 07/01/21 07/01/21 06:59 14:59 22:59 Intake Total 300 / 1560 640 / 640 480 / 1120 Output Total 1000 / 1450 Balance -700 / 110 640 / 640 480 / 1120 Weight last 48 hrs Weight 54.431 kg Physical Exam Const: COMMON NORMALS: no acute distress and patient oriented x3 GENERAL APPEARANCE: anxious and ill appearing HENMT: COMMON NORMALS: oropharynx normal Neck/C-Spine: COMMON NORMALS: no JVD Resp: COMMON NORMALS: normal respiratory effort and clear to auscultation bilaterally AUSCULTATION: clear to auscultation bilaterally Cardio: COMMON NORMALS: no JVD, regular rhythm, S1 normal heart sound present, S2 normal heart sound present and No murmurs present (Cardio) RHYTHM: regular rhythm HEART SOUNDS: S1 normal heart sound present and S2 normal heart sound present GI: COMMON NORMALS: Normal to inspection, nondistended, normoactive bowel sounds present, Soft to palpation and non-tender PALPATION: Yes Soft to palpation Extremity: COMMON NORMALS: no joint enlargement and no pedal edema Neuro: COMMON NORMALS: patient oriented x3 and moves all extremities Skin: COMMON NORMALS: no rashes or lesions noted GENERAL SKIN EXAM: no rashes or lesions noted Data : 07/01/21 05:12 07/01/21 05:12 Micro: Microbiology 06/29/21 16:30 Gram Stain - Final Sputum - Expectorated Sputum Sputum Culture - Preliminary Staphylococcus aureus A&P Assessment and plan (1) Pneumonia due to COVID-19 virus: Worsened oxygenation today, requiring 4 L of oxygen, however, has been working very well with flutter valve, I-S, try to mobilize. Through the oxygen requirement appears to be decreasing again. We will revisit again with her tomorrow. If continues to do better, perhaps may consider returning home. Staph aureus growing in sputum. Add vancomycin. Follow-up sensitivities. No focal pneumonia on chest x-ray, few colonies staph, so hopefully not we will infection, however, will cover at this time given ongoing hypoxia, viral pneumonia. Continue Decadron. Completes remdesivir course today. Continue prophylactic Lovenox. PT and OT Blood pressure is low, 95/55. Lower than usual. Suspect autonomic dysfunction secondary to COVID-19. Add midodrine. Status: Acute (2) Hypoxia: Status: Acute Additional A&P Information Negative procalcitonin, urine bacterial antigen, blood culture. MRSA positive. Low suspicion of bacterial infection for now. For now Levaquin 500 mg daily for 5 days. Patient wants her daughter Ms. Damon to be her DPOA for medical decisions when she is not able to make it by herself. Attestations Medical Necessity Statement*: Continue admission for hypoxia with severe COVID-19, staph aureus respiratory infection. Coding Level of Care Code Acute System Validation Engineer [facility] Diagnoses Pneumonia due to COVID-19 virus U07.1; J12.82 Hypoxia R09.02
--- NOTE | 2021-07-01 21:53 | PC.PHAR ---
Vancomycin is dosed at 1gm IVPB every 12 hours to produce a predicted trough level of 19.97(population based pharmacokinetic analysis). A trough level has been ordered from the lab to be obtained before the fourth dose to confirm and adjust if needed.
[2021-07-01] MEDS: vancomycin 1,000 MG in sodium chloride 0.9% 250 ML 250 MG IV (22:24)
[2021-07-01] MEDS: ALPRAZolam 0.5 mg Tablet PO (22:36)
[2021-07-02] VITALS (16 sets, daily range): BP systolic 96–107; BP diastolic 62–70; PULSE 65–94; RESP 17–20; TEMP 36.3–37.1; O2SAT 82–97
[2021-07-02] MEDS: ipratropium-albuterol 3 mL Neb INHALATION ×6 (03:20→23:41)
[2021-07-02 05:38] LABS: Basophils # 0.1 10^3/uL (0.0-0.1); Basophils % 0.5 %; Hematocrit 40.5 % (37.0-47.0); Hemoglobin 13.1 g/dL (11.5-15.3); Lymphocytes # 1.4 10^3/uL (0.8-4.8); Lymphocytes % 12.1 %; Mean Corpuscular HGB Conc 32.3 g/dL (30.0-36.0); Mean Corpuscular Hemoglobin 29.4 pg (28.0-34.0); Monocytes # 0.8 10^3/uL (0.2-0.9); Monocytes % 6.6 %; Neutrophils # 8.27 10^3/uL (1.8-7.7); Nucleated Red Blood Cells % 0 %; Platelet Count 459 10^3/cmm (130-400); Red Blood Count 4.45 10^6/uL (4.1-5.3); Red Cell Distribution Width 12.1 % (12.1-15.1); White Blood Count 11.3 10^3/uL (4.0-10.0)
[2021-07-02] MEDS: levoFLOXacin 500 mg Tablet PO (05:56)
[2021-07-02 06:09] LABS: Alanine Aminotransferase 72 U/L (0-33); Albumin Level 2.9 g/dL (3.5-5.2); Alkaline Phosphatase 58 IU/L (35-105); Anion Gap 18.9 (5-19); Aspartate Amino Transferase 21 U/L (0-32); Blood Urea Nitrogen 17 mg/dL (8-23); Calcium 8.8 mg/dL (8.5-10.5); Carbon Dioxide 23 mmol/L (22-29); Chloride 99 mmol/L (98-107); Glucose 146 mg/dL (65-115); Osmolality Calculated 288 mOsm/kg (285-295); Potassium 3.9 mmol/L (3.5-5.1); Sodium 137 mmol/L (136-145); Total Bilirubin 0.2 mg/dL (0.15-1.2); Total Protein 5.9 g/dL (6.6-8.7)
[2021-07-02 06:20] LABS: Slide Review Slide Review Perform
[2021-07-02] MEDS: budesonide 0.5 mg/2 mL Neb INHALATION ×2 (08:33→20:14)
[2021-07-02] MEDS: zinc gluconate 50 mg Tablet PO (08:47)
[2021-07-02] MEDS: famotidine 20 mg Tablet PO ×2 (08:47→17:37)
[2021-07-02] MEDS: benzonatate 100 mg Capsule PO ×3 (08:47→20:08)
[2021-07-02] MEDS: midodrine 5 mg TABLET PO ×3 (08:47→20:08)
[2021-07-02] MEDS: ascorbic acid 500 mg Tablet PO ×2 (08:47→17:37)
[2021-07-02] MEDS: vancomycin 1,000 MG in sodium chloride 0.9% 250 ML 250 MG IV ×2 (08:50→21:45)
[2021-07-02] MEDS: ondansetron 2 mg/ML SDV 2 mL 4 MG IVP (09:23)
[2021-07-02] MEDS: enoxaparin 40 mg/0.4 mL Syringe SUBCUT (13:23)
[2021-07-02] MEDS: dexamethasone 4 mg/mL INJ 6 MG IVP (13:23)
--- NOTE | 2021-07-02 17:02 | PM.PN ---
Subjective Subjective: Interval history: Coughing. But working with incentive spirometry, flutter valve. Discussed with her consideration return home, but she does not feel ready. She is getting stronger. Discussed with her we would plan potentially for tomorrow. She would like her to move out given he also has Covid, and she is afraid he can catch MRSA from her. Vitals/I&O/Wt Last Vital Signs Temp 98.0 F 07/02/21 16:00 Pulse 80 07/02/21 16:00 Resp 18 07/02/21 16:00 BP 105/70 07/02/21 16:00 Pulse Ox 92 07/02/21 16:00 07/02/21 07/02/21 07/02/21 06:59 14:59 22:59 Intake Total 730 / 1970 730 / 730 Output Total 575 / 1325 250 / 250 Balance 155 / 645 480 / 480 Weight last 48 hrs Weight 55.338 kg Weight 54.431 kg Physical Exam Const: COMMON NORMALS: no acute distress and patient oriented x3 GENERAL APPEARANCE: anxious and ill appearing OTHER: Up to chair HENMT: COMMON NORMALS: oropharynx normal Neck/C-Spine: COMMON NORMALS: no JVD Resp: COMMON NORMALS: normal respiratory effort and clear to auscultation bilaterally AUSCULTATION: clear to auscultation bilaterally Cardio: COMMON NORMALS: no JVD, regular rhythm, S1 normal heart sound present, S2 normal heart sound present and No murmurs present (Cardio) RHYTHM: regular rhythm HEART SOUNDS: S1 normal heart sound present and S2 normal heart sound present GI: COMMON NORMALS: Normal to inspection, nondistended, normoactive bowel sounds present, Soft to palpation and non-tender PALPATION: Yes Soft to palpation Extremity: COMMON NORMALS: no joint enlargement and no pedal edema Neuro: COMMON NORMALS: patient oriented x3 and moves all extremities Skin: COMMON NORMALS: no rashes or lesions noted GENERAL SKIN EXAM: no rashes or lesions noted Data : 07/02/21 04:58 07/02/21 04:58 Micro: Microbiology 06/27/21 14:36 Blood Culture - Final Blood NO GROWTH AFTER 5 DAYS 06/27/21 14:36 Blood Culture - Final Blood NO GROWTH AFTER 5 DAYS 06/29/21 16:30 Gram Stain - Final Sputum - Expectorated Sputum Sputum Culture - Final Methicillin Resis Staph Aureus A&P Assessment and plan (1) Pneumonia due to COVID-19 virus: Oxygenation appears to be gradually improving. We have broaden antibiotic coverage with vancomycin given MRSA respiratory infection superimposed with severe COVID-19 pneumonia. Discussed with her consideration of possible returning home tomorrow. She wants her to move out as he is also having Covid, and she does not want him to get MRSA infection as well, as he is moving out and moving in with his family to whom she is afraid he will also spread it. She is working with [employer], I-S. PT. Vancomycin added. Continues on Levaquin. Continue Decadron. Completes remdesivir course today. Continue prophylactic Lovenox. PT and OT Blood pressure soft, but appears slightly better with midodrine. Lower than usual. Suspect autonomic dysfunction secondary to COVID-19. Status: Acute (2) Hypoxia: Status: Acute Additional A&P Information Negative procalcitonin, urine bacterial antigen, blood culture. MRSA positive. Low suspicion of bacterial infection for now. For now Levaquin 500 mg daily for 5 days. Patient wants her daughter Ms. Damon to be her DPOA for medical decisions when she is not able to make it by herself. Attestations Medical Necessity Statement*: Continue admission for cyst management of severe COVID-19 with superimposed MRSA respiratory infection. Preparations for return home. Coding Level of Care Code Acute Manager Of Distribution for [facility] Diagnoses Pneumonia due to COVID-19 virus U07.1; J12.82 Hypoxia R09.02
[2021-07-03] VITALS (7 sets, daily range): BP systolic 99–108; BP diastolic 58–64; PULSE 64–80; RESP 17–18; TEMP 36.5–36.9; O2SAT 93–96
[2021-07-03] MEDS: acetaminophen 325 mg Tablet 650 MG PO (01:11)
[2021-07-03] MEDS: ipratropium-albuterol 3 mL Neb INHALATION ×2 (03:24→09:01)
[2021-07-03 06:08] LABS: Basophils % 0.2 %; Hematocrit 38.9 % (37.0-47.0); Hemoglobin 12.8 g/dL (11.5-15.3); Lymphocytes # 1.4 10^3/uL (0.8-4.8); Lymphocytes % 10.5 %; Mean Corpuscular HGB Conc 32.9 g/dL (30.0-36.0); Mean Corpuscular Hemoglobin 29.8 pg (28.0-34.0); Mean Corpuscular Volume 90.5 fl (81-99); Monocytes # 1.1 10^3/uL (0.2-0.9); Monocytes % 8.2 %; Nucleated Red Blood Cells % 0 %; Platelet Count 484 10^3/cmm (130-400); Red Cell Distribution Width 12.3 % (12.1-15.1); White Blood Count 12.9 10^3/uL (4.0-10.0)
[2021-07-03 06:33] LABS: Alanine Aminotransferase 51 U/L (0-33); Alkaline Phosphatase 49 IU/L (35-105); Anion Gap 17.4 (5-19); Aspartate Amino Transferase 18 U/L (0-32); Blood Urea Nitrogen 19 mg/dL (8-23); Calcium 8.5 mg/dL (8.5-10.5); Carbon Dioxide 23 mmol/L (22-29); Chloride 103 mmol/L (98-107); Globulin 2.6 g/dL (1.3-4.6); Glucose 95 mg/dL (65-115); Osmolality Calculated 290 mOsm/kg (285-295); Potassium 4.4 mmol/L (3.5-5.1); Sodium 139 mmol/L (136-145); Total Bilirubin 0.2 mg/dL (0.15-1.2); Total Protein 5.6 g/dL (6.6-8.7)
[2021-07-03 07:27] LABS: Slide Review Slide Review Perform
[2021-07-03] MEDS: budesonide 0.5 mg/2 mL Neb INHALATION (09:01)
[2021-07-03 09:30] LABS: Vancomycin Trough 11.3 ug/mL (10-15)
[2021-07-03] MEDS: zinc gluconate 50 mg Tablet PO (09:49)
[2021-07-03] MEDS: vancomycin 1,000 MG in sodium chloride 0.9% 250 ML 250 MG IV (09:49)
[2021-07-03] MEDS: ascorbic acid 500 mg Tablet PO (09:49)
[2021-07-03] MEDS: famotidine 20 mg Tablet PO (09:49)
[2021-07-03] MEDS: midodrine 5 mg TABLET PO (09:49)
[2021-07-03] MEDS: benzonatate 100 mg Capsule PO (09:49)
--- NOTE | 2021-07-03 10:25 | P.DS_ITS ---
Discharge Providers Date of Admission: 06/27/21 13:16 Date of Discharge: July 03, 2021 Attending Provider at Admission: Jose Alberto Perez MD Attending Provider at Discharge: John García Diagnoses at Discharge Discharge Diagnosis (1) Pneumonia due to COVID-19 virus: Status: Acute (2) Hypoxia: Status: Acute Reason for Visit Reason for Visit: Covid+, Low O2 Hospital Course Hospital Course 78 former smoker, without much significant past medical history otherwise was admitted and treated due to severe COVID-19 with hypoxic respiratory failure, requiring oxygen support, was treated with course of remdesivir, Decadron, during hospitalization also found to have bacterial superinfection with MRSA, initially empirically on Levaquin, subsequently vancomycin added. Will complete course of Bactrim on discharge. Had through the hospitalization quite significant malaise, easy fatigability, body aches, generalized weakness limiting ambulation. She is in the process of from her , and a number of family members have been ill with COVID-19, so has not had much family support. Today however, he is feeling much better, she is starting to taste and enjoy food more. Eating very well. Has been getting up. Is been working with PT. He is working with I-S, flutter valve very well. She is feeling much better, comfortable returning home. Oxygen is ordered for her as she is requiring on home evaluation yesterday 3 L at rest, 5 with exertion, although today doing even better on 2 L at rest. Physical Exam Const: COMMON NORMALS: no acute distress and patient oriented x3 GENERAL APPEARANCE: anxious and ill appearing OTHER: Up to chair HENMT: COMMON NORMALS: oropharynx normal Neck/C-Spine: COMMON NORMALS: no JVD Resp: COMMON NORMALS: normal respiratory effort and clear to auscultation bilaterally AUSCULTATION: clear to auscultation bilaterally Cardio: COMMON NORMALS: no JVD, regular rhythm, S1 normal heart sound present, S2 normal heart sound present and No murmurs present (Cardio) RHYTHM: regular rhythm HEART SOUNDS: S1 normal heart sound present and S2 normal heart sound present GI: COMMON NORMALS: Normal to inspection, nondistended, normoactive bowel sounds present, Soft to palpation and non-tender PALPATION: Yes Soft to palpation Extremity: COMMON NORMALS: no joint enlargement and no pedal edema Neuro: COMMON NORMALS: patient oriented x3 and moves all extremities Skin: COMMON NORMALS: no rashes or lesions noted GENERAL SKIN EXAM: no rashes or lesions noted Discharge Data Data Completed and Pending: Completed Studies During Hospitalization Category Date Time Status CTA chest [CT ang io chest PE protcl [id number]] Urgent Cat Scan 06/27/21 14:10 Completed XR chest 1V yvette ble [id number] Q48H Exams 06/28/21 13:45 Completed XR chest 1V yvette ble [id number] Q48H Exams 06/30/21 13:45 Completed XR chest 1V yvette ble [id number] Urgent Exams 06/27/21 10:31 Completed Pending at discharge Category Date Time Status Complete Blood Co unt w/Auto AM LABS Lab 07/04/21 04:00 Ordered Comprehensive Met abolic Panel AM LA BS Lab 07/04/21 04:00 Ordered Labs from last 24 hours 07/03/21 07/03/21 07/03/21 08:55 05:19 05:19 WBC 12.9 H RBC 4.30 Hgb 12.8 Hct 38.9 MCV 90.5 MCH 29.8 MCHC 32.9 RDW 12.3 Plt Count 484 H MPV 10.0 Neut % (Auto) 74.0 Lymph % (Auto) 10.5 [place] % (Auto) 8.2 Eos % (Auto) 0.0 Baso % (Auto) 0.2 Neut # (Auto) 9.50 H Lymph # (Auto) 1.4 [place] # (Auto) 1.1 H Eos # (Auto) 0.0 Baso # (Auto) 0.0 Nucleated RBC % (a uto) 0 Nucleated RBCs # 0.0 Sodium 139 Potassium 4.4 Chloride 103 Carbon Dioxide 23 Anion Gap 17.4 BUN 19 Creatinine 0.6 GFR Calculation 101.0 Glucose 95 Calculated Osmolal ity 290 Calcium 8.5 Total Bilirubin 0.2 AST 18 ALT 51 H Alkaline Phosphata se 49 Total Protein 5.6 L Albumin 3.0 L Globulin 2.6 Vancomycin Trough 11.3 Vitals: Last Vital Signs Temp 98.0 F 07/03/21 08:00 Pulse 80 07/03/21 08:00 Resp 18 07/03/21 08:00 BP 99/63 07/03/21 08:00 Pulse Ox 94 07/03/21 08:00 Discharge Plan Discharge Patient Disposition: Home Condition: Stable Prescriptions: New dextromethorphan-guaifenesin 10-100 mg/5 mL Syrup 5 ml PO Q4H PRN (Reason: Cough) Qty: 237 RF: 0 benzonatate 100 mg Capsule 100 mg PO TID PRN (Reason: cough) Qty: 30 RF: 0 midodrine 5 mg Tablet 5 mg PO TID Qty: 90 RF: 0 Bactrim DS 800-160 mg tablet 1 tab PO DAILY 7 Days RF: 0 Continued albuterol sulfate 90 mcg/actuation HFA aerosol inhaler 2 puff INHALATION Q6H PRN (Reason: Shortness Of Breath) RF: 0 Discontinued azithromycin 250 mg tablet See Rx Instructions .ROUTE .COMPLEX RF: 0 methylprednisolone 4 mg tablets,dose pack See Rx Instructions .ROUTE .COMPLEX RF: 0 Discharge Orders: Discharge Order (Routine); Ordered 07/03/21 Ordered By: John García Other Ambulatory Orders: DME: Oxygen (Order) Location: None Selected Ordered By: John García [place] [facility] [place] Alana Dwyer FNP [Staff Physician] - (Appt is July 09 2021 at 11:15am, arrive 15 minutes early for paperwork) Discharge Diet: Advance as tolerated Discharge Activity: Increase activity as tolerated, As per PT/OT instructions and Oxygen as instructed Patient Instructions: Sulfamethoxazole/Trimethoprim (By mouth), Viral Pneumonia (GEN), MRSA (Methicillin-Resistant Staphylococcus Aureus) (GEN), Using Oxygen at Home (GEN), Bacterial Pneumonia (GEN), Hypoxia (GEN), Contact Precautions (GEN), Droplet Precautions (GEN), Opioid Safety Activity Restrictions/Additional Instructions: Continue oxygen as instructed, increase oxygen flow with exertion. Maintain saturation above 92%. If saturation is remaining in the high 90s, decrease oxygen by 1 L/min, recheck in 10-15 minutes. Gradually continue to decrease oxygen flow, until you find you no longer need the oxygen. In case you get severely short of breath, increase oxygen flow, if saturations do not improve, following below 88% even after resting and after increasing oxygen flow, seek medical attention. Continue to work with flutter valve, incentive spirometry. Please complete antibiotic course for MRSA airway infection. Please follow-up with your primary doctor and discuss consideration of repeat chest x-ray, especially in case if your condition turns for the worse. Please maintain isolation for COVID-19 until July 10 at which point he may discontinue isolation. Consider obtaining Covid vaccination to help prevent repeat infection. Discharge Attestations Time Spent in Discharge Care*: greater than 30 min Quality Metrics Clinical Quality Measures During this hospital stay, did patient experience: None Coding Level of Care Code Acute g DC note Exam Comprehensive Diagnoses Pneumonia due to COVID-19 virus U07.1; J12.82 Hypoxia R09.02
--- NOTE | 2021-07-06 10:04 | PC.SOCIAL ---
Call placed to patient to follow up on message for FMLA paperwork. She will take to PCP appt and see if can be completed. Patient was given this nurse cell phone number just in case. She wrote down the information and was appreciative. Patient indicates O2 sats staying up around 97% and she is eating and drinking overall feeling better however, her mother this am at age of 89. Condolences offered to patient.
--- NOTE | 2021-08-25 12:14 | PC.SOCIAL ---
Insurance information and disability information for time period of hospiatlization filled out and signed by Dr García for provider information. Tried to call patient to let her know that a signed release to be done and also that the what is left should be filled out by her. Unable to reach left message.
== END 2021-07-03 14:10 | disposition home or self-care (01) | DRG 177 ==
LOC: ER 11:10 → MEDSURG 13:28
PROVIDERS: Admitting Provider Student in an Organized Health Care Education/Training Program; Emergency Provider Emergency Medicine; Visit Provider Internal Medicine
DX: U07.1 COVID-19 (principal); J12.82 Pneumonia due to coronavirus disease 2019; Z87.891 Personal history of nicotine dependence; B95.62 Methicillin resistant Staphylococcus aureus infection as the cause of diseases classified elsewhere
CPT/HCPCS: 36415; 36600; 71045; 71275; 80053; 80061; 80202; 81001; 82805; 83036; 83540; 83550; 83605; 83615; 83880; 84145; 84443; 84484; 85007; 85025; 85378; 86140; 86403; 87040; 87070; 87077; 87086; 87186; 87205; 87641; 87804; 93005; 94640; 94664; 96365; 96372; 97110; 97161; 97165; 97535; 99285; 99291; J1100; J1650; J2405; J3370; J7040; J7050; J7626; Q9967

== ENCOUNTER 2022-01-13 07:27 | Outpatient (CLI) | payer OTHER, SELFPAY ==
--- NOTE | 2022-01-13 07:45 | MM_ITS ---
WS: [id number] VIEWS: MLO and CC views both breasts. 3D digital tomosynthesis is also included in this exam. No priors for comparison. Findings: There was no sign of mass, architectural distortion or suspicious calcification in either breast. He terogeneously dense MM/[place] [id number] Impression: BI-RADS: 2-Benign FOLLOW-UP: 1 Year Follow-up This mammogram was also analyzed by the Computer Aided Detection System R2 Imag e Director Of Home Economics.
== END 2022-01-13 07:28 | disposition home or self-care (01) ==
PROVIDERS: Visit Provider Physician Assistant
DX: Z12.31 Encounter for screening mammogram for malignant neoplasm of breast (principal)
CPT/HCPCS: 77063; 77067

== ENCOUNTER 2023-09-13 08:09 | Outpatient (CLI) | payer MEDICARE, OTHER, SELFPAY ==
--- NOTE | 2023-09-13 08:18 | MM_ITS ---
WS: [id number] BILATERAL SCREENING DIGITAL TOMOSYNTHESIS MAMMOGRAM WITH CAD HISTORY: SCREENING COMPARISON: 01/13/2022 Bilateral CC and MLO views with tomosynthesis and synthetic mammography submitted. Computer aided det ection analyzed. Breast composition: There are scattered areas of fibroglandular density. No suspicious masses, microc alcifications or architectural distortion. Benign dense calcification in the upper outer quadrant LEF T breast. IMPRESSION: MM/[place] [id number] BI-RADS: 2-Benign FOLLOW UP: 1 Year Follow-up
== END 2023-09-13 08:10 | disposition home or self-care (01) ==
LOC: RAD 08:11
PROVIDERS: PCP Nurse Practitioner Family; Visit Provider Obstetrics & Gynecology Gynecology
DX: Z12.31 Encounter for screening mammogram for malignant neoplasm of breast (principal); R92.323 Mammographic fibroglandular density, bilateral breasts; R92.1 Mammographic calcification found on diagnostic imaging of breast
CPT/HCPCS: 77063; 77067

== ENCOUNTER → 2023-11-28 14:41 | Outpatient (BNVA) | payer MEDICARE, OTHER, SELFPAY | PROVIDERS: PCP Nurse Practitioner Family; Visit Provider Nurse Practitioner Family | DX: L82.0 Inflamed seborrheic keratosis (principal); D22.5 Melanocytic nevi of trunk; L81.4 Other melanin hyperpigmentation; L82.1 Other seborrheic keratosis; W89.1XXA Exposure to tanning bed, initial encounter | CPT/HCPCS: 17110; 99203 ==